=== PATIENT | male | born 1945 | race Caucasian/White ===

== ENCOUNTER → 2020-04-17 | Day surgery (SDC) | payer MEDICARE, BC ==
[~2020-04-17] MED LIST: Ketamine 200 MG/20 ML MDV IV ONE; Propofol 200 MG/20 ML SDV IV ONE
[2020-04-17] MEDS: Lactated Ringers 1,000 ML IV SCH (07:22)
[2020-04-17 08:50] VITALS: BP 109/62; PULSE 52
--- NOTE | 2020-04-17 12:56 | OR ---
DATE OF OPERATION: 04/17/2020 PREOPERATIVE DIAGNOSIS: SCREENING COLONOSCOPY. POSTOPERATIVE DIAGNOSIS: SCREENING COLONOSCOPY. SURGEON: Reji Nichole MD PROCEDURE: FULL-LENGTH COLONOSCOPY. ANESTHESIA: MAC. COMPLICATIONS: None. SPECIMEN: None. FINDINGS: 1. Full-length colonoscopy. 2. Mild sigmoid diverticulosis. RECOMMENDATIONS: Followup colonoscopy per routine ACS guidelines in 10 years. INDICATIONS: The patient was seen for routine physical. Screening colonoscopy was ordered. DESCRIPTION OF PROCEDURE: The patient was prepped and draped, placed in the left lateral decubitus position. A lubricated Olympus colonoscope was inserted and easily advanced to the cecum. Direct visualization of the ileocecal valve and appendiceal orifice was accomplished. The bowel prep was excellent. Upon withdrawal of the scope throughout the entire length of the colon, I could find no signs of any polyps, masses, ulceration, or bleeding sites. No vascular abnormalities or signs of colitis. There were a few scattered diverticula throughout the sigmoid area, mild in severity. The rectal vault was benign. Retroflexion showed some perianal hemorrhoid tissue, otherwise benign. Air was suctioned, scope removed without complication. ELVIS/DIONNE /[id number]
== END ==
LOC: CC.SDS 07:02
PROVIDERS: ATTEND Family Medicine
DX: Z12.11 Encounter for screening for malignant neoplasm of colon (principal); K57.30 Diverticulosis of large intestine without perforation or abscess without bleeding; K64.9 Unspecified hemorrhoids; E78.5 Hyperlipidemia, unspecified; N40.0 Benign prostatic hyperplasia without lower urinary tract symptoms; R97.20 Elevated prostate specific antigen [PSA]; Z88.0 Allergy status to penicillin
CPT/HCPCS: 00812; G0121; J2704; J7120

== ENCOUNTER → 2021-02-09 | Day surgery (SDC) | payer MEDICARE, BC ==
[~2021-02-09] MED LIST changes: -Ketamine 200 MG/20 ML MDV IV ONE; +Lidocaine 1% 30 ML SDV ONE; -Propofol 200 MG/20 ML SDV IV ONE
[2021-02-09 12:55] VITALS: BP 129/77; PULSE 66
== END ==
LOC: CC.SDS 10:47
PROVIDERS: ATTEND Family Medicine
DX: I87.2 Venous insufficiency (chronic) (peripheral) (principal); I83.813 Varicose veins of bilateral lower extremities with pain; E78.5 Hyperlipidemia, unspecified; N40.0 Benign prostatic hyperplasia without lower urinary tract symptoms; Z88.0 Allergy status to penicillin; Z98.890 Other specified postprocedural states
CPT/HCPCS: 36475; A4216

== ENCOUNTER → 2021-02-16 | Day surgery (SDC) | payer MEDICARE, BC ==
[2021-02-16 13:26] VITALS: BP 112/77; PULSE 66
== END ==
LOC: CC.SDS 10:47
PROVIDERS: ATTEND Family Medicine
DX: I83.812 Varicose veins of left lower extremity with pain (principal); I87.2 Venous insufficiency (chronic) (peripheral); Z88.0 Allergy status to penicillin; Z79.899 Other long term (current) drug therapy
CPT/HCPCS: 36475; A4216

== ENCOUNTER 2023-04-13 22:32 | Emergency (ER) | payer MEDICARE ==
[2023-04-13 22:56] LABS: BASOPHILS ABSOLUTE AUTO 0.02 10^3/uL (0.00-0.50); BASOPHILS PERCENT AUTO 0.4 % (0-1); EOSINOPHILS ABSOLUTE AUTO 0.37 10^3/uL (0.00-1.50); EOSINOPHILS PERCENT AUTO 7.6 % (0-6); HEMATOCRIT 42.3 % (42.0-52.0); HEMOGLOBIN 14.4 g/dL (14.0-18.0); IMMATURE GRAN ABSOLUTE AUTO 0.01 10^3/uL (0.00-0.49); IMMATURE GRAN PERCENT AUTO 0.2 % (0.0-4.9); LYMPHOCYTES ABSOLUTE AUTO 1.23 10^3/uL (0.60-5.00); LYMPHOCYTES PERCENT AUTO 25.1 % (24-44); MEAN CORPUSCULAR HEMOGLOBIN 30.4 pg (27.0-32.0); MEAN CORPUSCULAR VOLUME 89.4 fL (83.0-97.0); MONOCYTES ABSOLUTE AUTO 0.48 10^3/uL (0.00-1.50); MONOCYTES PERCENT AUTO 9.8 % (0-10); NEUTROPHILS ABSOLUTE AUTO 2.79 x10^3/uL (1.80-8.00); NEUTROPHILS PERCENT AUTO 56.9 % (41-71); PLATELET COUNT,PLT 224 10^3/uL (150-400); RED BLOOD CELL COUNT 4.73 x10^6/uL (4.50-6.00); WHITE BLOOD CELL COUNT,WBC 4.9 10^3/uL (4.0-11.0)
[2023-04-13 23:09] LABS: ALANINE AMINOTRANSFERASE,ALT 22 U/L (12-78); ALBUMIN 3.2 g/dL (3.4-5.0); ALKALINE PHOSPHATASE 68 U/L (46-116); ASPARTATE AMNIOTRANSFERASE,AST 18 U/L (15-37); BILIRUBIN TOTAL 0.7 mg/dL (0.0-1.0); BLOOD UREA NITROGEN,BUN 17 mg/dL (7-18); CALCIUM 8.7 mg/dL (8.4-10.1); CARBON DIOXIDE,CO2 30 mmol/L (21-32); CHLORIDE,CL 107 mEq/L (98-106); CREATININE 1.3 mg/dL (0.7-1.3); GLUCOSE RANDOM 110 mg/dL (75-99); POTASSIUM,K 3.9 mEq/L (3.5-5.0); PROTEIN TOTAL,TP 6.6 g/dL (6.4-8.2); SODIUM,NA 143 mEq/L (136-145)
[2023-04-13 23:10] LABS: ESTIMATED GFR 57 mL/min (>=60)
[2023-04-13 23:24] VITALS: BP 118/62; PULSE 62
[2023-04-14] MEDS: Furosemide 20 MG Tab PO ONE (00:01)
== END 2023-04-14 00:05 | disposition home or self-care (01) ==
LOC: CC.ED 22:32
DX: M79.89 Other specified soft tissue disorders (principal); Z88.0 Allergy status to penicillin
CPT/HCPCS: 36415; 80053; 85025; 85379; 99283; 99284; A9270-GY

== ENCOUNTER 2025-07-12 09:40 | Emergency (ER) | payer MEDICARE ==
[2025-07-12 10:09] VITALS: BP 124/63; PULSE 64
== END 2025-07-12 10:15 | disposition home or self-care (01) ==
LOC: CC.ED 09:40
DX: R21 Rash and other nonspecific skin eruption (principal); Z88.0 Allergy status to penicillin; Z79.899 Other long term (current) drug therapy
CPT/HCPCS: 99282